=== PATIENT | male | born 1990 | race Caucasian/White ===

== ENCOUNTER 2020-01-29 02:10 | Emergency (ER) | payer OTHER ==
[~2020-01-29] VITALS: Ht 165.1 cm; Wt 74.8 kg
[2020-01-29 02:15] VITALS: Ht 165.1 cm; Wt 74.8 kg
[2020-01-29 02:35] VITALS: BP 143/79
== END 2020-01-29 02:45 | disposition other institution (70) ==
LOC: ED 02:10
DX: Z02.89 Encounter for other administrative examinations (principal)